=== PATIENT | male | born 1955 | race Caucasian/White ===

== ENCOUNTER → 2019-03-09 | Outpatient (CLI) | payer BC ==
--- NOTE | 2019-03-09 08:57 | MR ---
EXAMINATION TYPE: MR brain wo/w con DATE OF EXAM: 03/09/2019 8:32 AM COMPARISON: Previous study dated 08/12/2008 HISTORY: Memiory loss TECHNIQUE: Multiplanar, multiecho imaging of the brain was obtained with and without intravenous adm inistration of 8.5 mL intravenous Gadavist. FINDINGS: Midline structures are unremarkable. There is a normal craniocervical junction. Echoplanar diffusion imaging shows minimal restricted diffusion in a swollen thalamus on the left. There are normal vascular flow voids. The orbits are unremarkable. There is no evidence of a CP angle mass lesion. There is some subcortical high signal lesion on the FLAIR dataset. There is abnormal signal signal an d swelling in the thalamus on the left. There is, however no evidence of enhancement in this location . There is some decreased signal on the T1 data set. There is mild mass effect on the adjacent latera l ventricle. There is no midline shift or intracranial blood identified. Following intravenous administration of gadolinium I do not see evidence of abnormal enhancement. IMPRESSION: 1. MASSLIKE LESION IN THE LEFT THALAMUS MEASURING 2.3 X 4 CM. THIS DOES NOT ENHANCE FOLLOWING GADOLIN IUM. IN SPITE OF THE LACK OF ENHANCEMENT NEOPLASM WOULD HAVE TO BE A PRIME CONSIDERATION. VASOGENIC E ROWENA SECONDARY TO INFARCTION ALSO BE A POSSIBLE CAUSE. 2. SCATTERED SUBCORTICAL PUNCTATE FLAIR LESIONS WHICH ARE NONSPECIFIC AND LIKELY ON THE BASIS OF SMAL L VESSEL DISEASE OR VASCULITIS. OTHER CAUSES OF DEMYELINATION ARE NOT EXCLUDED.
== END | disposition home or self-care (01) ==
LOC: RADMRIMAIN 07:51
PROVIDERS: ATTEND Psychiatry & Neurology Neurology
DX: G93.89 Other specified disorders of brain (principal)
CPT/HCPCS: 70553; A9585

== ENCOUNTER 2019-05-23 08:21 | Emergency (ER) | payer BC ==
[2019-05-23 08:33] VITALS: BP 114/80; PULSE 65; RESP 18; TEMP 98.2
[2019-05-23] MEDS ORDERED: SODIUM CHLORIDE 0.9% 500 ML 500 ML IV STA (08:49)
--- NOTE | 2019-05-23 08:53 | ED ---
General Adult HPI - General Chief complaint: Altered Mental Status Stated complaint: Fall Time Seen by Provider: 05/23/19 08:36 Source: patient, EMS Mode of arrival: EMS Limitations: altered mental status, physical limitation - History of Present Illness Initial comments: Dictation was produced using [employer] dictation software. please excuse any grammatical, word or spelling errors. 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 History of Present Illness: She is 64-year-old male who presents today via EMS. Patient allegedly fell approximately 1-2 hours prior to arrival. Patient was ambulatory in the bathroom when he lost his balance and struck his head. was at bedside reports that he was difficult to arouse this morning because she was very sleepy. Patient is on week 1, day 5 of cancer treatment. He takes oral chemotherapy. Patient has normal cognitive delay and unsteady gait. Patient feels well at this time. He has no pain complaints. Denies any neck pain. Patient is a reliable historian. He denies any loss of consciousness. The ROS documented in this emergency department record has been reviewed and confirmed by me. Those systems with pertinent positive or negative responses have been documented in the HPI. All other systems are other negative and/or noncontributory. PHYSICAL EXAM: General Impression: Alert and oriented x3, not in acute distress HEENT: 1 cm superficial laceration to the superior portion of the head just over the vertex, extra-ocular movements intact, pupils equal and reactive to light bilaterally, mucous membranes moist. Cardiovascular: Heart regular rate and rhythm, S1&S2 audible, no murmurs, rubs or gallops Chest: Lungs clear to auscultation bilaterally, no rhonchi, no wheeze, no rales Abdomen: Bowel sounds present, abdomen soft, non-tender, non-distended, no organomegaly Musculoskeletal: Pulses present and equal in all extremities, no peripheral edema Motor: no focal deficits noted Neurological: CN II-XII grossly intact, no focal motor or sensory deficits noted Skin: Intact with no visualized rashes Psych: Normal affect and mood ED course: 64-year-old male presents with fall. He has recent diagnosis of astrocytoma intracranially. He is being treated with anti-cancer drugs. Vital signs upon arrival are within acceptable limits. Patient otherwise well-appea ring at this time. Patient has small superficial laceration to the vertex of the head. Patient is alert and oriented 4. Does not appear to be in acute distress. Patient is awake and alert. Computed tomography scan of the brain was obtained showing no acute processes. Chest x-ray and pelvis x-rays unremarkable. Patient had a 1 cm laceration to the vertex of his head was repaired using Steri-Strips. Laboratory evaluation obtained. Mild leukocytosis of 12.3 likely secondary to stress. Coag panel and metabolic panels obtained showing no acute processes. Urinalysis unremarkable. Drugs is negative. Patient is well-appearing at bedside. Patient has been having multiple bouts of urinary incontinence. She has no complaints at this time. He has no back pain. Patient and motor without complications. Full catheter was placed for convenience. They're told to follow-up with urologist for possible removal. Patient's urinary incontinence is likely related to his cancer therapy or i ntracranial tumor. Nonetheless patient has no emergent issues occurring at this time. Patient be discharged. Family is understandable and agreeable with plan. EKG interpretation: Ventricular rate 56, sinus bradycardia, MI interval 166, QS 90, QTC 411. No MI prolongation, no QTC prolongation, no ST or T-wave changes noted. Skin no changes compared to 06/14/2014. Overall, this EKG is unremark able - Related Data Home Medications Medication Instructions Recorded Confirmed Colesevelam [Welchol] 1,250 mg PO BID 06/14/14 05/23/19 Telmisartan [Micardis] 40 mg PO DAILY 06/14/14 05/23/19 Ondansetron HCl [Zofran] 8 mg PO DAILY 05/23/19 05/23/19 Sulfamethox-Tmp 800-160Mg [Bactrim 1 tab PO MOWEFR 05/23/19 05/23/19 DS 800-160 mg] Temozolomide 140 mg PO DAILY@1345 05/23/19 05/23/19 amLODIPine [Norvasc] 10 mg PO DAILY 05/23/19 05/23/19 Allergies Allergy/AdvReac Type Severity Reaction Status Date / Time No Known Allergies Allergy Verified 05/23/19 09:08 Review of Systems ROS Statement: Those systems with pertinent positive or pertinent negative responses have been documented in the HPI. ROS Other: All systems not noted in ROS Statement are negative. Past Medical History Past Medical History: Cancer, CVA/TIA, Hyperlipidemia, Hypertension, Osteoarthritis (OA) Additional Past Medical History / Comment(s): hx. skin cancer, couple TIA's years ago, minor memory issues, brain tumor History of Any Multi-Drug Resistant Organisms: None Reported Past Surgical History: Hernia Repair, Orthopedic Surgery Additional Past Surgical History / Comment(s): cervical neck surgery Past Anesthesia/Blood Transfusion Reactions: No Reported Reaction Past Psychological History: No Psychological Hx Reported Smoking Status: Never smoker Past Alcohol Use History: Occasional Past Drug Use History: None Reported - Past Family History Father Family Medical History: Cancer Mother Family Medical History: Cancer General Exam Limitations: altered mental status, physical limitation Course Vital Signs 05/23/19 08:32 Temperature 98.2 F Pulse Rate 65 Respiratory 18 Rate Blood Pressure 114/80 O2 Sat by Pulse 95 Oximetry Procedures - Laceration Laceration #1 Consent Obtained: verbal consent, emergent situation Indication: laceration Site: scalp Description: linear (superficial) Size of Sutures: other (steristrips) Patient Tolerated Procedure: well Medical Decision Making - Lab Data Result diagrams: 05/23/19 09:16 05/23/19 09:16 Lab Results 05/23/19 05/23/19 05/23/19 Range/Units 09:16 09:16 09:16 WBC 12.3 H (3.8-10.6) k/uL RBC 4.98 (4.30-5.90) m/uL Hgb 16.2 (13.0-17.5) gm/dL Hct 47.4 (39.0-53.0) % MCV 95.2 (80.0-100.0) fL MCH 32.6 (25.0-35.0) pg MCHC 34.2 (31.0-37.0) g/dL RDW 14.2 (11.5-15.5) % Plt Count 316 (150-450) k/uL Neutrophils % 89 % Lymphocytes % 4 % Monocytes % 5 % Eosinophils % 1 % Basophils % 0 % Neutrophils # 11.0 H (1.3-7.7) k/uL Lymphocytes # 0.5 L (1.0-4.8) k/uL Monocytes # 0.6 (0-1.0) k/uL Eosinophils # 0.1 (0-0.7) k/uL Basophils # 0.0 (0-0.2) k/uL PT (9.0-12.0) sec INR (<1.2) APTT (22.0-30.0) sec Sodium 139 (137-145) mmol/L Potassium 4.4 (3.5-5.1) mmol/L Chloride 104 (98-107) mmol/L Carbon Dioxide 28 (22-30) mmol/L Anion Gap 7 mmol/L BUN 22 H (9-20) mg/dL Creatinine 0.66 (0.66-1.25) mg/dL Est GFR (CKD-EPI)AfAm >90 (>60 ml/min/1.73 sqM) Est GFR (CKD-EPI)NonAf >90 (>60 ml/min/1.73 sqM) Glucose 101 H (74-99) mg/dL Plasma Lactic Acid Royal 1.7 (0.7-2.0) mmol/L Calcium 9.8 (8.4-10.2) mg/dL Magnesium 2.1 (1.6-2.3) mg/dL Total Bilirubin 0.7 (0.2-1.3) mg/dL AST 21 (17-59) U/L ALT 21 (21-72) U/L Alkaline Phosphatase 69 (38-126) U/L Ammonia <9 (<30) umol/L Creatine Kinase <20 L (55-170) U/L Troponin I (0.000-0.034) ng/mL Total Protein 6.8 (6.3-8.2) g/dL Albumin 4.3 (3.5-5.0) g/dL Urine Color Urine Appearance (Clear) Urine pH (5.0-8.0) Ur Specific [place] (1.001-1.035) Urine Protein (Negative) Urine Glucose (UA) (Negative) Urine Ketones (Negative) Urine Blood (Negative) Urine Nitrite (Negative) Urine Bilirubin (Negative) Urine Urobilinogen (<2.0) mg/dL Ur Leukocyte Esterase (Negative) Urine Opiates Screen (NotDetected) Ur Oxycodone Screen (NotDetected) Urine Methadone Screen (NotDetected) Ur Propoxyphene Screen (NotDetected) Ur Barbiturates Screen (NotDetected) U Tricyclic Antidepress (NotDetected) Ur Phencyclidine Scrn (NotDetected) Ur Amphetamines Screen (NotDetected) U Methamphetamines Scrn (NotDetected) U Benzodiazepines Scrn (NotDetected) Urine Cocaine Screen (NotDetected) U Marijuana (THC) Screen (NotDetected) Serum Alcohol <10 mg/dL Blood Type Blood Type Recheck Bld Type Recheck Status Antibody Screen Spec Expiration Date 05/23/19 05/23/19 05/23/19 Range/Units 09:16 09:16 09:16 WBC (3.8-10.6) k/uL RBC (4.30-5.90) m/uL Hgb (13.0-17.5) gm/dL Hct (39.0-53.0) % MCV (80.0-100.0) fL MCH (25.0-35.0) pg MCHC (31.0-37.0) g/dL RDW (11.5-15.5) % Plt Count (150-450) k/uL Neutrophils % % Lymphocytes % % Monocytes % % Eosinophils % % Basophils % % Neutrophils # (1.3-7.7) k/uL Lymphocytes # (1.0-4.8) k/uL Monocytes # (0-1.0) k/uL Eosinophils # (0-0.7) k/uL Basophils # (0-0.2) k/uL PT 10.0 (9.0-12.0) sec INR 0.9 (<1.2) APTT 22.2 (22.0-30.0) sec Sodium (137-145) mmol/L Potassium (3.5-5.1) mmol/L Chloride (98-107) mmol/L Carbon Dioxide (22-30) mmol/L Anion Gap mmol/L BUN (9-20) mg/dL Creatinine (0.66-1.25) mg/dL Est GFR (CKD-EPI)AfAm (>60 ml/min/1.73 sqM) Est GFR (CKD-EPI)NonAf (>60 ml/min/1.73 sqM) Glucose (74-99) mg/dL Plasma Lactic Acid Royal (0.7-2.0) mmol/L Calcium (8.4-10.2) mg/dL Magnesium (1.6-2.3) mg/dL Total Bilirubin (0.2-1.3) mg/dL AST (17-59) U/L ALT (21-72) U/L Alkaline Phosphatase (38-126) U/L Ammonia (<30) umol/L Creatine Kinase (55-170) U/L Troponin I <0.012 (0.000-0.034) ng/mL Total Protein (6.3-8.2) g/dL Albumin (3.5-5.0) g/dL Urine Color Urine Appearance (Clear) Urine pH (5.0-8.0) Ur Specific [place] (1.001-1.035) Urine Protein (Negative) Urine Glucose (UA) (Negative) Urine Ketones (Negative) Urine Blood (Negative) Urine Nitrite (Negative) Urine Bilirubin (Negative) Urine Urobilinogen (<2.0) mg/dL Ur Leukocyte Esterase (Negative) Urine Opiates Screen (NotDetected) Ur Oxycodone Screen (NotDetected) Urine Methadone Screen (NotDetected) Ur Propoxyphene Screen (NotDetected) Ur Barbiturates Screen (NotDetected) U Tricyclic Antidepress (NotDetected) Ur Phencyclidine Scrn (NotDetected) Ur Amphetamines Screen (NotDetected) U Methamphetamines Scrn (NotDetected) U Benzodiazepines Scrn (NotDetected) Urine Cocaine Screen (NotDetected) U Marijuana (THC) Screen (NotDetected) Serum Alcohol mg/dL Blood Type A Positive Blood Type Recheck No Previous Record Bld Type Recheck Status CABO Indicated Antibody Screen NEGATIVE Spec Expiration Date 05/26/2019 - 231505/23/19 Range/Units 09:16 WBC (3.8-10.6) k/uL RBC (4.30-5.90) m/uL Hgb (13.0-17.5) gm/dL Hct (39.0-53.0) % MCV (80.0-100.0) fL MCH (25.0-35.0) pg MCHC (31.0-37.0) g/dL RDW (11.5-15.5) % Plt Count (150-450) k/uL Neutrophils % % Lymphocytes % % Monocytes % % Eosinophils % % Basophils % % Neutrophils # (1.3-7.7) k/uL Lymphocytes # (1.0-4.8) k/uL Monocytes # (0-1.0) k/uL Eosinophils # (0-0.7) k/uL Basophils # (0-0.2) k/uL PT (9.0-12.0) sec INR (<1.2) APTT (22.0-30.0) sec Sodium (137-145) mmol/L Potassium (3.5-5.1) mmol/L Chloride (98-107) mmol/L Carbon Dioxide (22-30) mmol/L Anion Gap mmol/L BUN (9-20) mg/dL Creatinine (0.66-1.25) mg/dL Est GFR (CKD-EPI)AfAm (>60 ml/min/1.73 sqM) Est GFR (CKD-EPI)NonAf (>60 ml/min/1.73 sqM) Glucose (74-99) mg/dL Plasma Lactic Acid Royal (0.7-2.0) mmol/L Calcium (8.4-10.2) mg/dL Magnesium (1.6-2.3) mg/dL Total Bilirubin (0.2-1.3) mg/dL AST (17-59) U/L ALT (21-72) U/L Alkaline Phosphatase (38-126) U/L Ammonia (<30) umol/L Creatine Kinase (55-170) U/L Troponin I (0.000-0.034) ng/mL Total Protein (6.3-8.2) g/dL Albumin (3.5-5.0) g/dL Urine Color Light Yellow Urine Appearance Clear (Clear) Urine pH 6.5 (5.0-8.0) Ur Specific [place] 1.014 (1.001-1.035) Urine Protein Negative (Negative) Urine Glucose (UA) Negative (Negative) Urine Ketones Negative (Negative) Urine Blood Negative (Negative) Urine Nitrite Negative (Negative) Urine Bilirubin Negative (Negative) Urine Urobilinogen <2.0 (<2.0) mg/dL Ur Leukocyte Esterase Negative (Negative) Urine Opiates Screen Not Detected (NotDetected) Ur Oxycodone Screen Not Detected (NotDetected) Urine Methadone Screen Not Detected (NotDetected) Ur Propoxyphene Screen Not Detected (NotDetected) Ur Barbiturates Screen Not Detected (NotDetected) U Tricyclic Antidepress Not Detected (NotDetected) Ur Phencyclidine Scrn Not Detected (NotDetected) Ur Amphetamines Screen Not Detected (NotDetected) U Methamphetamines Scrn Not Detected (NotDetected) U Benzodiazepines Scrn Not Detected (NotDetected) Urine Cocaine Screen Not Detected (NotDetected) U Marijuana (THC) Screen Not Detected (NotDetected) Serum Alcohol mg/dL Blood Type Blood Type Recheck Bld Type Recheck Status Antibody Screen Spec Expiration Date Disposition Clinical Impression: Fall Disposition: HOME SELF-CARE Condition: Fair Instructions (If sedation given, give patient instructions): Brain Tumors (DC), Hinojosa Catheter Placement and Care (ED) Is patient prescribed a controlled substance at d/c from ED?: No Referrals: Jonathan Culp MD [Primary Care Provider] - 1-2 days Alan Proctor MD [STAFF PHYSICIAN] - 1-2 days Mark Antoine DO [Family Provider] - 1-2 days Time of Disposition: 11:30
--- NOTE | 2019-05-23 09:11 | CT ---
EXAMINATION TYPE: CT brain lakisha sheppard con DATE OF EXAM: 05/23/2019 COMPARISON: CT brain June 14, 2014 HISTORY: Fall in shower with headache and neck pain. CT DLP: 1419.5 mGycm. Automated Exposure Control for Dose Reduction was Utilized. TECHNIQUE: CT scan of the head and cervical spine are performed without contrast. FINDINGS: There is no acute intracranial hemorrhage, mass effect, or midline shift identified. The ventricles and sulci are within normal limits in size for patient's age. Some low-attenuation periv entricular white matter is present. There is new left frontal craniotomy or sherry hole with overlying metallic plate axial image 44 .Nasal septum remains deviated to right of midline. The globes are inta ct and the visualized sinuses are clear. Cervical spine is visualized in its entirety from C1 through upper thoracic levels and demonstrates r eversal of normal cervical curvature without evidence of acute fracture or dislocation. Prevertebral soft tissue appears within normal limits. The C1-C2 articulation is within normal limits on the cor onal images. There is S-shaped scoliotic curvature on coronal images. Vertebral body heights are eusebio ntained. Moderate to advanced spurring and disc space narrowing C5-C6 and C6-C7 levels is present. Ca lcified or artificial disc C6-C7 level is noted. Correlate clinically. Spinal canal is preserved. Review of axial images shows left-sided uncovertebral facet degenerative changes C2-C3, left greater than right facet arthropathy C3-C4, and right C4-C5 levels causing mild to moderate multilevel neural foraminal narrowing. Thyroid gland is slightly bulky and heterogeneous without greater than 1 cm nod ule. Lung apices are clear. Mild to moderate calcified plaque left carotid bulb level is noted. IMPRESSION: 1. There is no acute fracture or dislocation evident in the cervical spine. 2. No acute intracranial hemorrhage or midline shift is seen.
--- NOTE | 2019-05-23 09:12 | XR ---
EXAMINATION TYPE: XR chest 1V portable DATE OF EXAM: 05/23/2019 COMPARISON: NONE HISTORY: Chest pain after fall injury. TECHNIQUE: Single frontal view of the chest is obtained. FINDINGS: Somewhat low lung volumes are present. There is no focal air space opacity, pleural effusi on, or pneumothorax seen. The cardiac silhouette size is upper limits of normal. The osseous struc tures are intact. IMPRESSION: No acute process.
--- NOTE | 2019-05-23 09:21 | XR ---
EXAMINATION TYPE: XR pelvis AP view DATE OF EXAM: 05/23/2019 CLINICAL HISTORY: Pelvic pain after trauma TECHNIQUE: A single AP view of the pelvis is obtained. COMPARISON: None. FINDINGS: There is no acute fracture/dislocation evident in the pelvis. The hip and sacroiliac join ts appear symmetric with mild degenerative changes of the femoral acetabular joints. The overlying so ft tissue appears unremarkable. IMPRESSION: There is no acute fracture or dislocation in the pelvis.
[2019-05-23 09:38] LABS: Appearance,Urine Clear (Clear); Bilirubin,Urine Negative (Negative); Blood,Urine Negative (Negative); Color,Urine Light Yellow; Glucose,Urine (UA) Negative (Negative); Ketones,Urine Negative (Negative); Leukocyte Esterase,Urine Negative (Negative); Nitrite,Urine Negative (Negative); PH, Urine 6.5 (5.0-8.0); Protein,Urine Negative (Negative); Specific Gravity,Urine 1.014 (1.001-1.035); Urobilinogen,Urine <2.0 mg/dL (<2.0)
[2019-05-23 09:46] LABS: Ammonia <9 umol/L (<30); Lactic Acid, Venous 1.7 mmol/L (0.7-2.0)
[2019-05-23 09:48] LABS: ALT 21 U/L (21-72); AST 21 U/L (17-59); African American GFR (CKD) >90 (>60 ml/min/1.73 sqM); Albumin 4.3 g/dL (3.5-5.0); Alcohol <10 mg/dL; Alkaline Phosphatase 69 U/L (38-126); Anion Gap 7 mmol/L; Blood Urea Nitrogen 22 mg/dL (9-20); Calcium 9.8 mg/dL (8.4-10.2); Carbon Dioxide 28 mmol/L (22-30); Chloride 104 mmol/L (98-107); Creatine Kinase <20 U/L (55-170); Glucose 101 mg/dL (74-99); Magnesium 2.1 mg/dL (1.6-2.3); Potassium 4.4 mmol/L (3.5-5.1); Sodium 139 mmol/L (137-145); Total Bilirubin 0.7 mg/dL (0.2-1.3); Total Protein 6.8 g/dL (6.3-8.2)
[2019-05-23 09:50] LABS: Basophils % (A) 0 %; Eosinophils # (A) 0.1 k/uL (0-0.7); Eosinophils % (A) 1 %; HCT 47.4 % (39.0-53.0); HGB 16.2 gm/dL (13.0-17.5); Lymphocytes # (A) 0.5 k/uL (1.0-4.8); Lymphocytes % (A) 4 %; MCH 32.6 pg (25.0-35.0); MCHC 34.2 g/dL (31.0-37.0); MCV 95.2 fL (80.0-100.0); Mean Platelet Volume 6.6; Monocytes # (A) 0.6 k/uL (0-1.0); Monocytes % (A) 5 %; Neutrophils % (A) 89 %; Platelet Count 316 k/uL (150-450); RBC 4.98 m/uL (4.30-5.90); RDW 14.2 % (11.5-15.5); WBC 12.3 k/uL (3.8-10.6)
[2019-05-23 09:52] LABS: INR 0.9 (<1.2); Partial Thromboplastin Time 22.2 sec (22.0-30.0)
[2019-05-23 09:54] LABS: Amphetamine Screen,Urine Not Detected (NotDetected); Barbiturate Screen,Urine Not Detected (NotDetected); Benzodiazepines Screen,Urine Not Detected (NotDetected); Cocaine Screen,Urine Not Detected (NotDetected); Methadone Screen, Urine Not Detected (NotDetected); Opiate Screen,Urine Not Detected (NotDetected); Oxycodone Screen, Urine Not Detected (NotDetected); Phencyclidine Screen,Urine Not Detected (NotDetected); Tricyclic Antidepressant,Urine Not Detected (NotDetected); Urn Cannabinoid Scrn Not Detected (NotDetected)
== END 2019-05-23 14:00 | disposition home or self-care (01) ==
LOC: EC 08:21
DX: S01.01XA Laceration without foreign body of scalp, initial encounter (principal); D72.829 Elevated white blood cell count, unspecified; I10 Essential (primary) hypertension; Z85.828 Personal history of other malignant neoplasm of skin; Z86.73 Personal history of transient ischemic attack (TIA), and cerebral infarction without residual deficits; Z85.841 Personal history of malignant neoplasm of brain; Z92.21 Personal history of antineoplastic chemotherapy; Z80.8 Family history of malignant neoplasm of other organs or systems; Z79.899 Other long term (current) drug therapy; Z53.8 Procedure and treatment not carried out for other reasons; W19.XXXA Unspecified fall, initial encounter; Y92.002 Bathroom of unspecified non-institutional (private) residence as the place of occurrence of the external cause
CPT/HCPCS: 36415; 70450; 71045; 72125; 72170; 80053; 80306; 80320; 81003; 82140; 82550; 83605; 83735; 84484; 85025; 85610; 85730; 86850; 86900; 86901; 93005; 99285